=== PATIENT | female | born 1990 | race Caucasian/White ===

== ENCOUNTER 2017-10-03 13:33 | Emergency (ER) | payer MEDICAID ==
[2017-10-03 13:46] VITALS: BP 124/72
--- NOTE | 2017-10-03 14:43 | ER Document Report ---
ED Medical Screen (RME) - General Chief Complaint: Abdominal Pain Stated Complaint: ABDOMINAL PAIN Time Seen by Provider: 10/03/17 14:42 Notes: Patient states that she has an IUD and that she is "not supposed to have periods ". She states she has had them for 3 years and this week started having cramping and bleeding. She states she is unable to find the string to her IUD. TRAVEL OUTSIDE OF THE [place] IN LAST 30 DAYS: No - Related Data Allergies/Adverse Reactions: No Known Allergies Allergy (Unverified 10/03/17 13:34) Past Medical History - Social History Frequency of alcohol use: None Drug Abuse: None Renal/ Medical History: Denies: Hx Peritoneal Dialysis Physical Exam - Vital signs Vitals: Temp Pulse Resp BP Pulse Ox 98.3 F 73 18 124/72 99 10/03/17 13:45 10/03/17 13:45 10/03/17 13:45 10/03/17 13:45 10/03/17 13:45 Course - Vital Signs Vital signs: Temp Pulse Resp BP Pulse Ox 98.3 F 73 18 124/72 99 10/03/17 13:45 10/03/17 13:45 10/03/17 13:45 10/03/17 13:45 10/03/17 13:45
[2017-10-03 15:03] LABS: ABSOLUTE EOSINOPHILS # (AUTO) 0.1 10^3/uL (0.0-0.6); ABSOLUTE LYMPHOCYTES (AUTO) 2.5 10^3/uL (0.5-4.7); ABSOLUTE MONOCYTES (AUTO) 0.7 10^3/uL (0.1-1.4); ABSOLUTE NEUT (AUTO) 6.9 10^3/uL (1.7-8.2); BASOPHILS % (AUTO) 0.4 % (0-2); EOSINOPHILS % (AUTO) 0.9 % (0-6); HEMATOCRIT 41.3 % (36.0-47.0); HEMOGLOBIN 14.1 g/dL (12.0-15.5); LYMPHOCYTES % (AUTO) 24.4 % (13-45); MEAN CORPUSCULAR HEMOGLOBIN 31.8 pg (27.0-33.4); MEAN CORPUSCULAR HGB CONC 34.1 g/dL (32.0-36.0); MEAN CORPUSCULAR VOLUME 93 fl (80-97); MONOCYTES % (AUTO) 7.1 % (3-13); PLATELET COUNT 383 10^3/uL (150-450); RED BLOOD COUNT 4.43 10^6/uL (3.72-5.28); RED CELL DISTRIBUTION WIDTH 13.5 % (11.5-14.0); SEGMENTED NEUTROPHILS % (AUTO) 67.2 % (42-78); TOTAL CELLS COUNTED % (AUTO) 100 %; WHITE BLOOD COUNT 10.2 10^3/uL (4.0-10.5)
[2017-10-03 15:06] LABS: APPEARANCE,URINE SLIGHTLY-CLOUDY; BILIRUBIN,URINE NEGATIVE (NEGATIVE); COLOR,URINE YELLOW; GLUCOSE, URINE NEGATIVE (NEGATIVE); KETONES,URINE NEGATIVE (NEGATIVE); LEUKOCYTE ESTERASE,URINE NEGATIVE (NEGATIVE); NITRITE,URINE NEGATIVE (NEGATIVE); PROTEIN,URINE NEGATIVE (NEGATIVE); URINE SPECIFIC GRAVITY 1.014; UROBILINOGEN,URINE NEGATIVE mg/dL (<2.0)
[2017-10-03 15:29] LABS: ALANINE AMINOTRANSFERASE 16 U/L (9-52); ALBUMIN 4.5 g/dL (3.5-5.0); ALKALINE PHOSPHATASE 57 U/L (38-126); ANION GAP 13 (5-19); ASPARTATE AMINO TRANSFERASE 15 U/L (14-36); BILIRUBIN,DIRECT 0.3 mg/dL (0.0-0.4); BILIRUBIN,TOTAL 0.4 mg/dL (0.2-1.3); BLOOD UREA NITROGEN 9 mg/dL (7-20); CALCIUM 10.2 mg/dL (8.4-10.2); CARBON DIOXIDE 28 mmol/L (22-30); CHLORIDE 102 mmol/L (98-107); GLUCOSE 96 mg/dL (75-110); POTASSIUM 4.5 mmol/L (3.6-5.0); SODIUM 142.5 mmol/L (137-145); TOTAL PROTEIN 7.5 g/dL (6.3-8.2)
--- NOTE | 2017-10-03 15:35 | ER Document Report ---
ED General - General Chief Complaint: Abdominal Pain Stated Complaint: ABDOMINAL PAIN Time Seen by Provider: 10/03/17 14:42 Mode of Arrival: Ambulatory Information source: Patient Notes: Patient is a 36 year old otherwise healthy female who presents with 1 week history of pelvic cramping and intermittent vaginal bleeding. She reports needing to use 2-3 pads per day. She states she has an IUD and has not had a period or complications for the past 3 years. She has not seen an [facility]HABILIT[facility] CONSULTANT for this. She does also endorse vaginal discharge. She denies any fever, chills, nausea, vomiting, diarrhea, dysuria or hematuria. She was seen and had a rapid medical exam done with lab work and urinalysis. TRAVEL OUTSIDE OF THE [place] IN LAST 30 DAYS: No - Related Data Allergies/Adverse Reactions: No Known Allergies Allergy (Unverified 10/03/17 13:34) Past Medical History - General Information source: Patient - Social History Smoking Status: Current Every Day Smoker Frequency of alcohol use: None Drug Abuse: None Family History: Reviewed & Not Pertinent Patient has suicidal ideation: No Patient has homicidal ideation: No Renal/ Medical History: Denies: Hx Peritoneal Dialysis Review of Systems - Review of Systems Constitutional: See HPI EENT: No symptoms reported Cardiovascular: No symptoms reported Respiratory: No symptoms reported Gastrointestinal: No symptoms reported Genitourinary: See HPI Female Genitourinary: See HPI Musculoskeletal: No symptoms reported Skin: No symptoms reported Hematologic/Lymphatic: No symptoms reported Neurological/Psychological: No symptoms reported Physical Exam - Vital signs Vitals: Temp Pulse Resp BP Pulse Ox 98.3 F 73 18 124/72 99 10/03/17 13:45 10/03/17 13:45 10/03/17 13:45 10/03/17 13:45 10/03/17 13:45 - Notes Notes: PHYSICAL EXAM: CONSTITUTIONAL: Alert and oriented, well-appearing and in no acute distress. HENT: Normocephalic, atraumatic. Trachea midline. Uvula midline. Moist mucous membranes. EYES: Pupils equal round and reactive to light, EOM intact. Sclera anicteric, conjunctiva are normal. No entrapment. NECK: supple without lymphadenopathy. No midline tenderness or paraspinous muscle spasms. No step-offs or deformities. ROM intact. Negative Kernig's and negative Brudzinski's. HEART: Regular rate and rhythm without murmurs. LUNGS: CTAB and equal. No wheezes, rales or rhonchi. GI: Normactive bowel sounds. Abdomen is soft, nontender, non-distended. No organomegaly. no CVAT. No rebound or guarding. Negative McBurney's point tenderness, negative Haddad sign. Negative Rovsing's sign, negative Psoas sign. 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 No rashes or lesions. mild white thin vaginal discharge, no vaginal bleeding. Cervix without lesions. No cervical motion tenderness. IUD string visible from cervical os. NEURO: Cranial nerves grossly intact. Normal sensory/motor exams. PSYCH: Normal mood, normal affect. SKIN: Warm and dry. Normal turgor. No rashes or lesions noted. Course - Re-evaluation Re-evalutation: 10/03/17 15:34 Patient seen and examined. Well hydrated, well appearing, VSS, NAD. Abdominal exam non-surgical. Reviewed labs - CBC unremarkable, UA unremarkable, electrolytes unremarkable. Low suspicion for intra-abdominal infection. Will do pelvic exam with swabs. 10/03/17 16:05 Pelvic exam performed. IUD string visible at cervical OS, will order US to confirm placement due to patient's abdominal cramping. Wet prep pending, G/C pending. No bleeding noted on pelvic exam. 10/03/17 18:15 Patient was waiting on US - both myself and nurse called US concerning ETA and was told there was only one tech today and they would be coming shortly for patient. Patient eloped prior to US being completed. - Vital Signs Vital signs: Temp Pulse Resp BP Pulse Ox 98.3 F 73 18 124/72 99 10/03/17 13:45 10/03/17 13:45 10/03/17 13:45 10/03/17 13:45 10/03/17 13:45 - Laboratory Result Diagrams: 10/03/17 14:43 10/03/17 14:43 Laboratory results interpreted by me: 10/03/17 14:46 Urine Ascorbic Acid 40 H 10/03/17 15:35 reviewed - no abnormalities Procedures - Pelvic Exam Pelvic exam Time completed: 16:05 Cultures obtained: Yes Wet prep obtained: Yes Herpes culture obtained: No POC sent to lab: No Foreign body removed: No Witnessed by: Randa CARRANZA Notes: 10/03/17 16:05 IUD string noted at cervical os. Thin white cervical discharge noted. Discharge - Discharge Clinical Impression: Vaginal discharge, IUD check up Abdominal pain Qualifiers: Abdominal location: lower abdomen, unspecified Qualified Code(s): R10.30 - Lower abdominal pain, unspecified Condition: Stable Disposition: HOME, SELF-CARE Additional Instructions: Vaginal Bleeding You are having an episode of abnormal bleeding. Causes of abnormal vaginal bleeding can include miscarriage or tubal , tumors such as cancer or benign fibroids, medication effects, or hormone imbalance. Testing can eliminate unsuspected , tumors, or infection as a cause. "Dysfunctional uterine bleeding" is due to hormone imbalance, and is especially common at times when the normal cycle is disturbed -- whether by recent , use of control pills or hormones, or impending menopause. If the bleeding is innocent, most commonly a short course of hormones is given to restore the uterus to normal. Sometimes, the normal menstrual cycle corrects itself naturally. Sometimes , brief hormone therapy, or even a D&C is required. Your physician will advise you. Treatment for anemia may be required if bleeding is severe. You should rest and avoid intercourse until the bleeding is controlled. Call the doctor or return for re-examination if you feel faint, have increasing pain, or have a major increase in the amount of bleeding. FOLLOW-UP CARE: If you have been referred to a physician for follow-up care, call the physician s office for an appointment as you were instructed or within the next two days. If you experience worsening or a significant change in your symptoms, notify the physician immediately or return to the Emergency Department at any time for re-evaluation.
[2017-10-03 16:16] LABS: BACTERIA (WET MOUNT) 3+ BACTERIA SEEN; EPITHELIALS (WET MOUNT) 3+ EPITHELIALS SEEN; T.VAGINALIS (WET MOUNT) NO TRICHOMONAS SEEN; WBCS (WET MOUNT) RARE WBCS SEEN; YEAST (WET MOUNT) NO YEAST SEEN
[2017-10-03 17:41] LABS: CHLAM PCR NOT DETECTED (NOT DETECT); GON PCR NOT DETECTED (NOT DETECT)
== END 2017-10-03 18:29 | disposition left against medical advice (07) ==
LOC: EDSEX 13:33 → ER 13:33
DX: N89.8 Other specified noninflammatory disorders of vagina (principal); R10.2 Pelvic and perineal pain; Z30.431 Encounter for routine checking of intrauterine contraceptive device; F17.200 Nicotine dependence, unspecified, uncomplicated
CPT/HCPCS: 36415; 80053; 81001; 81025; 85025; 87210; 87491; 87591; 99284

== ENCOUNTER 2018-01-28 20:28 | Emergency (ER) | payer MEDICAID ==
[2018-01-28] MEDS ORDERED: OXYCODONE-ACETAMINOPHEN 5-325 MG TABLET PO ONE (20:44)
--- NOTE | 2018-01-28 20:46 | ER Document Report ---
ED Medical Screen (RME) - General Chief Complaint: Vaginal Bleeding Stated Complaint: VAGINAL ISSUE Time Seen by Provider: 01/28/18 20:42 Notes: 27-year-old female complaining of pain all over, lower pelvic pain, back pain. Patient states that she is 8 weeks . Passing large clots today. Was seen in [facility] and had ultrasound and diagnosed with threatened miscarriage yesterday and also diagnosed with urinary tract infection. Cannot get comfortable today. I have greeted and performed a rapid initial assessment of this patient. A comprehensive ED assessment and evaluation of the patient, analysis of test results and completion of the medical decision making process will be conducted by additional ED providers. TRAVEL OUTSIDE OF THE [place] IN LAST 30 DAYS: No - Related Data Allergies/Adverse Reactions: No Known Allergies Allergy (Unverified 10/03/17 13:34) Past Medical History Renal/ Medical History: Denies: Hx Peritoneal Dialysis Review of Systems - Review of Systems Notes: Review of systems positive for the following: Back pain, pelvic pain, vaginal bleeding Physical Exam - Vital signs Vitals: Temp Pulse Resp BP Pulse Ox 98.7 F 81 16 119/72 100 01/28/18 20:33 01/28/18 20:33 01/28/18 20:33 01/28/18 20:33 01/28/18 20:33 Interpretation: Normal - General General appearance: Appears well, Alert, Other - Uncomfortable appearing In distress: Mild Course - Vital Signs Vital signs: Temp Pulse Resp BP Pulse Ox 98.7 F 81 16 119/72 100 01/28/18 20:33 01/28/18 20:33 01/28/18 20:33 01/28/18 20:33 01/28/18 20:33
[2018-01-28 21:07] LABS: ABSOLUTE BASOPHILS # (AUTO) 0.1 10^3/uL (0.0-0.2); ABSOLUTE EOSINOPHILS # (AUTO) 0.4 10^3/uL (0.0-0.6); ABSOLUTE NEUT (AUTO) 8.1 10^3/uL (1.7-8.2); BASOPHILS % (AUTO) 0.7 % (0-2); EOSINOPHILS % (AUTO) 2.9 % (0-6); HEMATOCRIT 33.4 % (36.0-47.0); HEMOGLOBIN 11.4 g/dL (12.0-15.5); LYMPHOCYTES % (AUTO) 29.3 % (13-45); MEAN CORPUSCULAR HEMOGLOBIN 32.1 pg (27.0-33.4); MEAN CORPUSCULAR HGB CONC 34.2 g/dL (32.0-36.0); MEAN CORPUSCULAR VOLUME 94 fl (80-97); MONOCYTES % (AUTO) 7.3 % (3-13); PLATELET COUNT 403 10^3/uL (150-450); RED BLOOD COUNT 3.57 10^6/uL (3.72-5.28); RED CELL DISTRIBUTION WIDTH 12.3 % (11.5-14.0); SEGMENTED NEUTROPHILS % (AUTO) 59.8 % (42-78); TOTAL CELLS COUNTED % (AUTO) 100 %; WHITE BLOOD COUNT 13.5 10^3/uL (4.0-10.5)
[2018-01-28 21:16] LABS: ANION GAP 13 (5-19); BLOOD UREA NITROGEN 6 mg/dL (7-20); CALCIUM 9.6 mg/dL (8.4-10.2); CARBON DIOXIDE 25 mmol/L (22-30); CHLORIDE 105 mmol/L (98-107); GLUCOSE 87 mg/dL (75-110); POTASSIUM 3.9 mmol/L (3.6-5.0); SODIUM 142.9 mmol/L (137-145)
--- NOTE | 2018-01-28 21:56 | RADIOLOGY REPORT (SQ) ---
EXAM DESCRIPTION: U/S OB TRANSVAGINAL W/O DOP COMPLETED DATE/TIME: 01/28/2018 9:40 pm REASON FOR STUDY: ? 8wk preg and bleeding COMPARISON: None. TECHNIQUE: Endovaginal static and realtime grayscale images acquired of the pelvis. Additional selec kristyn spectral and color Doppler images recorded. All images stored on PACs. [id number] CLINICAL DATES: Patient states last menses 11/28/2017 LIMITATIONS: None. FINDINGS: UTERUS: No visualized intrauterine . There is focal thickening of the fundal end ometrial stripe up to 16 mm. No intrauterine gestational sac or definite decidual reaction is identi fied. RIGHT ADNEXA: Normal ovary with normal vascular flow. Right ovary 3.7 x 1.7 x 1.5 cm in size. No adnexal free fluid. No adnexal masses. LEFT ADNEXA: Normal ovary with normal vascular flow. Left ovary 3.7 x 1.9 x 1.9 cm in size. No adnexal free fluid. No adnexal masses. FREE FLUID: Small amount of physiologic pelvic fluid. OTHER: No other significant finding. IMPRESSION: NO VISUALIZED INTRA- OR EXTRAUTERINE . ECTOPIC CANNOT BE EXCLUDED. FOLLOW-UP ULTRASOUND AND SERIAL BHCG LEVELS STRONGLY RECOMMENDED TO ACCURATELY ASSESS STATU S. TECHNICAL DOCUMENTATION: JOB ID: [id number] [employer]- All Rights Reserved Reading location - IP/workstation name: [email or web address]
[2018-01-28] MEDS ORDERED: MORPHINE SULFATE IR 15 MG TABLET PO ONE (22:23)
[2018-01-28] MEDS ORDERED: PROMETHAZINE HCL 25 MG TABLET PO ONE (22:23)
--- NOTE | 2018-01-28 22:24 | ER Document Report ---
ED GI/ - General Chief Complaint: Vaginal Bleeding Stated Complaint: VAGINAL ISSUE Time Seen by Provider: 01/28/18 20:42 Notes: Patient is a 27 year old female, at about 8 weeks gestation by last menstrual period, that comes emergency department for chief complaint of miscarriage. She states that at home she bled heavily and passed a lot of tissue including seeing a fetus that she passed at home already. She states that she continued to have bleeding and cramping and became concerned and came in for evaluation. She denies dizziness or passing out. She denies vomiting or fever. She follows with [facility] in [place] and is here visiting her boyfriend. She had an appointment yesterday and [facility] where she states that she had an ultrasound, she states she is unsure what it showed specifically but they told her they thought she was miscarrying. She has a follow-up appointment in 2 days in [place]. TRAVEL OUTSIDE OF THE [place] IN LAST 30 DAYS: No - Related Data Allergies/Adverse Reactions: No Known Allergies Allergy (Unverified 10/03/17 13:34) Past Medical History - General Information source: Patient - Social History Smoking Status: Current Every Day Smoker Frequency of alcohol use: None Drug Abuse: None Lives with: Family Family History: Reviewed & Not Pertinent Patient has suicidal ideation: No Patient has homicidal ideation: No Renal/ Medical History: Denies: Hx Peritoneal Dialysis Surgical Hx: Negative - Immunizations Hx Diphtheria, Pertussis, Tetanus Vaccination: Yes Review of Systems - Review of Systems Constitutional: No symptoms reported EENT: No symptoms reported Cardiovascular: No symptoms reported Respiratory: No symptoms reported Gastrointestinal: See HPI Genitourinary: See HPI Female Genitourinary: See HPI Musculoskeletal: No symptoms reported Skin: No symptoms reported Hematologic/Lymphatic: No symptoms reported Neurological/Psychological: No symptoms reported Physical Exam - Vital signs Vitals: Temp Pulse Resp BP Pulse Ox 98.7 F 81 16 119/72 100 01/28/18 20:33 01/28/18 20:33 01/28/18 20:33 01/28/18 20:33 01/28/18 20:33 - Notes Notes: GENERAL: Alert, interacts well. No acute distress. HEAD: Normocephalic, atraumatic. EYES: Pupils equal, round, and reactive to light. Extraocular movements intact. ENT: Oral mucosa moist, tongue midline. NECK: Full range of motion. Supple. Trachea midline. LUNGS: Clear to auscultation bilaterally, no wheezes, rales, or rhonchi. No respiratory distress. HEART: Regular rate and rhythm. No murmur ABDOMEN: Mild lower abdominal tenderness. Nonspecific. No guarding. Non- distended. Bowel sounds present in all 4 quadrants. GENITOURINARY: Small amount of bleeding from the cervix, no products of conception noted in the vaginal vault or the cervix, no severe tenderness, no other abnormality noted. Marcella PCT present during exam. EXTREMITIES: Moves all 4 extremities spontaneously. No edema, normal radial and dorsalis pedis pulses bilaterally. No cyanosis. BACK: no cervical, thoracic, lumbar midline tenderness. No saddle anesthesia, normal distal neurovascular exam. NEUROLOGICAL: Alert and oriented x3. Normal speech. [cranial nerves II through XII grossly intact]. PSYCH: Normal affect, normal mood. SKIN: Warm, dry, normal turgor. No rashes or lesions noted. Course - Re-evaluation Re-evalutation: HCG is elevated at greater than 6000, no visualized intrauterine , however patient is very specifically and very confidently telling me that she passed tissue and saw the fetus pass as well. On pelvic exam there is some bleeding but no evidence of retained products in the cervix, no heavy bleeding. Patient asymptomatic other than occasional cramps. She is very well-appearing. Unremarkable vital signs. CBC, chemistry generally unremarkable. Provided with a copy of her hCG and ultrasound, patient states she will be seen in 2 days by [facility] for additional evaluation and management. Discussed return precautions in detail with patient and significant other. They state understanding and agreement. Stable at time of discharge. - Vital Signs Vital signs: Temp Pulse Resp BP Pulse Ox 97.9 F 75 18 115/66 98 01/28/18 23:50 01/28/18 23:50 01/28/18 23:50 01/28/18 23:50 01/28/18 23:50 - Laboratory Result Diagrams: 01/28/18 20:58 01/28/18 20:58 Laboratory results interpreted by me: 01/28/18 01/28/18 20:58 20:58 WBC 13.5 H RBC 3.57 L Hgb 11.4 L Hct 33.4 L BUN 6 L Beta HCG, Quant 6915.40 H Discharge - Discharge Clinical Impression: Miscarriage, Vaginal bleeding, Pelvic pain Condition: Stable Disposition: HOME, SELF-CARE Additional Instructions: Your ultrasound does not show any products of the in the uterus, your examination does not show any product either, appears to have passed. Please take your ultrasound report and your blood test results with you in 2 days for your follow-up appointment. This appears to be a complete miscarriage. Take medicine for nausea and pain as prescribed if needed, return immediately if you worsen including heavy bleeding, passing out, severe pain, fever, or any other concerning symptoms. Prescriptions: Morphine Sulfate [Morphine Ir 15 Mg Tablet] 15 mg PO Q4HP PRN #15 tablet PRN Reason: Promethazine HCl [Phenergan 25 mg Tablet] 25 mg PO Q6H PRN #20 tablet PRN Reason:
[2018-01-28] MEDS ORDERED: HYDROCODONE/ACETAMINOPHEN 5-325 MG (6 TAB/ER DISP) PO PRN (23:19)
[2018-01-28] MEDS ORDERED: ONDANSETRON ODT 4 MG TAB (6 TAB/ER DISP) PO PRN (23:19)
[2018-01-28 23:52] VITALS: BP 115/66
== END 2018-01-29 | disposition home or self-care (01) ==
LOC: ER 20:28
DX: O03.9 Complete or unspecified spontaneous abortion without complication (principal); R10.2 Pelvic and perineal pain; F17.200 Nicotine dependence, unspecified, uncomplicated
CPT/HCPCS: 99284; 86900; 86901; 36415; 84702; 85025; 80048; 76817; J3490